=== PATIENT | female | born 1980 | race Caucasian/White ===

== ENCOUNTER 2019-03-26 11:08 | Emergency (ER) | payer OTHER ==
[~2019-03-26] VITALS: Ht 167.6 cm; Wt 83.0 kg
[~2019-03-26 11:08] MED LIST: LIPITOR10 MG PO; LISINOPRIL2.5 MG PO; PHENERGAN 25 MG25 M1 PO; PROMS25 WY RECTAL; SNAP INSULIN P1 EACH SUBQ; SYNTHROID75 MCG PO; VENTOLIN HFA 1818 GM INH; ZOFRAN ODT4 MG PO
[2019-03-26 11:10] VITALS: BP 150/79
[2019-03-26] MEDS ORDERED: WELLBUTRIN SR100 MG PO (11:14)
[2019-03-26] MEDS ORDERED: IBUPROFEN 800800 M1 PO (12:03)
[2019-03-26] MEDS ORDERED: AMOXICILLIN 50500 M1 PO (12:03)
[2019-03-26] MEDS ORDERED: TRAMADOL 50 MG50 MG PO (12:03)
== END 2019-03-26 12:13 | disposition home or self-care (01) ==
LOC: ER 11:08
DX: K02.9 Dental caries, unspecified (principal); E11.9 Type 2 diabetes mellitus without complications; Z88.1 Allergy status to other antibiotic agents; Z79.4 Long term (current) use of insulin

== ENCOUNTER 2019-04-24 13:52 | Inpatient (IN) | payer OTHER ==
[~2019-04-24] VITALS: Ht 162.6 cm; Wt 78.2 kg
[~2019-04-24 13:52] MED LIST changes: +AMOXICILLIN 50500 M1 PO; +IBUPROFEN 800800 M1 PO; +TRAMADOL 50 MG50 MG PO; +WELLBUTRIN SR100 MG PO
[2019-04-24 13:59] VITALS: BP 194/93
[2019-04-24 15:16] LABS: URINE BILIRUBIN NEGATIVE (Negative); URINE BLOOD 1+ (Negative); URINE CLARITY SL CLOUDY; URINE COLOR YELLOW; URINE GLUCOSE-RANDOM* 3+ (Negative); URINE KETONES TRACE (Negative); URINE LEUKOCYTES-REFLEX NEGATIVE (Negative); URINE NITRITE-REFLEX NEGATIVE (Negative); URINE PROTEIN (DIPSTICK) 3+ (Negative); URINE UROBILINOGEN 0.2 E.U./dl (0.2-1.0)
[2019-04-24 15:19] LABS: ABSOLUTE NEUTROPHILS 13.1 thou/uL (1.4-8.2); BASOPHILS 0.4 % (0.0-2.0); HEMATOCRIT 31.1 % (37.0-47.0); HEMOGLOBIN 10.5 gm/dL (12.0-15.0); LYMPHOCYTES 3.6 % (24.0-44.0); MCH 29.4 pg (26.0-34.0); MCHC 33.7 g/dL (28.0-37.0); MCV 87.3 fL (80.0-100.0); PLATELET COUNT 289 thou/uL (150-400); RBC 3.56 mil/uL (4.20-5.00); RDW 12.9 % (10.5-14.5); WBC 13.9 thou/uL (4.0-11.0)
[2019-04-24 15:31] LABS: CALCIUM 9.2 mg/dL (8.5-10.1); CREATININE 1.1 mg/dL (0.6-1.0); POTASSIUM 4.4 mmol/L (3.5-5.1)
[2019-04-24 15:45] LABS: CASTS None Seen /LPF (None Seen); SQUAMOUS 4-10 Moderate /LPF (0-3); URINE RBC 0-2 Rare /HPF (0-2); URINE WBC-REFLEX 0-5 Rare /HPF (0-5)
[2019-04-24 15:45] LABS: ALBUMIN 3.4 g/dL (3.4-5.0); DIRECT BILIRUBIN 0.1 mg/dL (<0.1-0.3); TOTAL BILIRUBIN 0.4 mg/dL (<0.1-1.0)
[2019-04-24 15:46] LABS: BACTERIA-REFLEX 1-9 Few /HPF (None Seen)
[2019-04-24 15:47] LABS: AMORPHOUS URATES Few /LPF (None Seen)
[2019-04-24 19:11] VITALS: BP 161/79
[2019-04-24 20:01] VITALS: BP 165/65
[2019-04-24 21:21] VITALS: BP 152/86
--- NOTE | 2019-04-25 01:44 | NUR ---
PT WAS ADMITTED TO THE UNIT FROM THE ER AT APPROX 1950 IN A STABLE CONDITION.ADMISSION HX,EDUCATION AND ASSESSMENT COMPLETED.PT HAD NAUSEA AND A TEMP OF 100.6 ON ADMIT.HOME SECURITY PROFESSIONAL ON DUTY NOTIFIED,ORDER NOTED AND CARRIED OUT.IVF INFUSING ORDERED.PT RESTING ON HER BED AT THIS TIME.CALL LIGHT WITHIN REACH.
[2019-04-25 04:01] LABS: HEMATOCRIT 28.9 % (37.0-47.0); HEMOGLOBIN 9.8 gm/dL (12.0-15.0); MCH 29.6 pg (26.0-34.0); MCV 87.1 fL (80.0-100.0); RBC 3.32 mil/uL (4.20-5.00); RDW 12.9 % (10.5-14.5); WBC 12.6 thou/uL (4.0-11.0)
[2019-04-25 04:16] LABS: CALCIUM 8.5 mg/dL (8.5-10.1); CREATININE 1.2 mg/dL (0.6-1.0); POTASSIUM 4.3 mmol/L (3.5-5.1)
[2019-04-25 07:12] VITALS: BP 153/81
[2019-04-25] MEDS ORDERED: ZOFRAN ODT4 MG DISSOLVE (09:27)
[2019-04-25 12:26] VITALS: BP 153/81
--- NOTE | 2019-04-25 13:55 | NUR ---
Assumed pt care at 7am.Pt in bed sleeping but arousable.Assessment completed. vss.No nausea or vomiting noted.Dr hernandez here,order noted.Pt tolerated lunch. Consult called to Dr Pompa and he rounded on pt.Insulin given via pt insulin pump x2 todaty.Dc summary compiled and reviewed with pt .Will dc pt later this after when her ride come.Will continue to monitor.
[2019-04-25 15:37] VITALS: BP 142/70
--- NOTE | 2019-04-26 07:50 | HC ---
[facility] [place] [address] CONSULTATION Name: KAELA JUAREZ Room #: 426-P [facility]..#: [id number] Admission: 04/24/19 ������������������ Attend Phys: Jc Jolly MD Discharge: 04/25/19 ������������������ Date of : 80 Report #: [id number] THIS REPORT FOR: //name// CC: Jc Jolly [facility] physician/PCP Erica PEPPER MD DATE OF SERVICE: 04/25/2019 ENDOCRINE CONSULTATION NOTE CONSULTING PHYSICIAN: Dr. Jc Jolly. PRIMARY CARE PHYSICIAN: Dr. Jenkins. CAREER SERVICES OFFICER: Dr. Pepper at [facility]. REASON FOR CONSULTATION: Uncontrolled type 1 diabetes mellitus. HISTORY OF PRESENT ILLNESS: This is a 38-year-old female patient whose medical background is significant for insulin-dependent diabetes mellitus. The patient was diagnosed with diabetes mellitus in 2006 and was treated briefly with oral antidiabetic agents, but quickly needed to progress to insulin therapy. Thereafter, the patient went on insulin pump therapy for some years, but then lost it due to insurance issues only to resume it again less than a year ago. She is currently on a [employer] Paradigm pump. Her basal rate settings are midnight 1 unit per hour, 5:00 a.m. 1.1 unit per hour, 4:00 p.m. 1.2 units per hour, 10:00 p.m. 1.1 units per hour. Her insulin sensitivity factor is 40, her carbohydrate to insulin ratio is 14:1. Her blood sugar target is 100-120. The patient notes that she takes Humalog insulin through her pump. It appears that her pump settings have been changed quite significantly only a few weeks ago and that since then, her blood glucose control had improved significantly at home to where she is running mostly between 120 and 200 mg/dL. She denies ongoing issues with hypoglycemia. The patient's background is negative for diabetic retinopathy and she notes that she gets annual eye exams, she does have mild nondisruptive peripheral neuropathy affecting both of her feet, she is not aware of issues pertaining to chronic kidney disease, she does not have coronary artery disease. Interestingly, 2 years ago, the patient had her right fifth toe amputated after a nonhealing ulcer, but she has never had issues with foot wound since then. In addition to this background, the patient is hypothyroid and was diagnosed only several months ago and is currently on levothyroxine therapy. The patient could not determine whether she was on 75 or 175 mcg daily [place] [address] CONSULTATION Name: KAELA JUAREZ Room #: 426-P [facility] ..#: [id number] Admission: 04/24/19 ������������������ Attend Phys: Jc Jolly MD Discharge: 04/25/19 ������������������ Date of : 80 Report #: [id number] believes that this dosage was put in place less than a month ago by Dr. ePpper based on recent thyroid function studies. She denies major issues with fatigue, tiredness, unexplained body weight changes, skin or hair changes. The patient is on chronic therapy with atorvastatin and lisinopril. Interestingly, the patient notes that she has acquired recent diagnosis of schizophrenia/bipolar disorder and was placed on multiple agents for these that she could not recall the names of. The patient presented here yesterday with complaints of intractable nausea, vomiting, abdominal discomfort that appeared all of a sudden. The patient noted that her blood glucose values were running in the 300 mg/dL when that happened and recalls having had similar episodes in the past, where uncontrolled severe hyperglycemia would eventually lead to intractable nausea and vomiting. She denies issues of fever or chills. By the time that I saw her, the patient was more comfortable and able to tolerate clears and soft diet well without issues. REVIEW OF SYSTEMS: CONSTITUTIONAL: Negative for fatigue, body weight changes, fever or chills. HEENT: Negative for sinus pain, ear drainage, ear pain. PULMONARY: Negative for shortness of breath, cough or hemoptysis. CARDIAC: Negative for palpitations, syncope or presyncope. GASTROINTESTINAL: Noted for intractable nausea and vomiting, now improving with a slight abdominal discomfort. NEUROLOGY: Baseline peripheral diabetic neuropathy; however, does not disrupt sleep or impair her gait. No seizures. No headaches, no loss of consciousness. PSYCHIATRY: She denies hallucinations, delusions, depression, but has significant sleep disturbances. As noted above, the patient believes she had been just handed a diagnosis of bipolar/schizophrenia. HEMATOLOGY: Negative for bleeding, bruising or other related abnormalities. SKIN: Negative for rash, discoloration or itching. Otherwise, review of system is noncontributory, unless mentioned in HPI. PAST MEDICAL HISTORY: 1. Insulin-dependent diabetes mellitus, likely type 1 diabetes mellitus. 2. Hypothyroidism. 3. Hypertension. 4. Hyperlipidemia. 5. Peripheral vascular disease, status post amputation of the fifth right toe. 6. Questionable recent diagnosis of bipolar disorder and schizophrenia. 7. Acute renal insufficiency with a GFR of 50. The patient does not recall having had any issue with that in the past. CURRENT MEDICATIONS: Humalog insulin as per her insulin pump settings; levothyroxine, unknown dose 75 or 175 mcg daily; lisinopril 2.5 mg daily; atorvastatin 10 mg daily. The patient also says that she is on 3 psych meds that she cannot recall at this point in time. [facility] [address] [place] [address] CONSULTATION Name: KAELA JUAREZ Room #: 426-P [facility] IN ..#: [id number] Admission: 04/24/19 ������������������ Attend Phys: Jc Jolly MD Discharge: 04/25/19 ������������������ Date of : 80 Report #: [id number] ALLERGIES: CLINDAMYCIN. FAMILY HISTORY: Noncontributory. SOCIAL HISTORY: Has three children. Currently unemployed. Denies use of tobacco or alcohol. Recently moved from [place]. PHYSICAL EXAMINATION: GENERAL: Pleasant young female patient who is not in apparent pain or distress. VITAL SIGNS: Blood pressure is 153/81 mmHg, heart rate is 102 beats per minute, respirations 12 per minute, temperature 37.2 degrees. HEENT: Anicteric sclerae. Intact extraocular motions. NECK: Supple, without JVD, carotid bruits, or lymphadenopathy. I do not appreciate thyromegaly. CHEST: Clear to auscultation. LUNGS: Reveal good air entry bilaterally. No rales, wheezes or crackles. HEART: Regular rate and rhythm without murmurs or gallops. ABDOMEN: Soft and lax without tenderness or organomegaly. There is a bit of generalized discomfort on deep palpation, but no guarding, no organomegaly. She has active bowel sounds. LOWER EXTREMITIES: No edema. No skin changes, deformities. Pedal pulses are appreciated. Sensation to light touch is only slightly diminished. She is status post a well-healed fifth right toe amputation. NEUROLOGIC: Awake, alert and oriented to time, place and person. The remainder of her examination is nonfocal other than for the slight sensory deficit noted over both feet. PSYCHOLOGY: Pleasant, interactive, appropriate, oriented to time, place and person. No delusions. SKIN: No rash, ulceration or discoloration. No other changes. LABORATORY DATA: Blood glucose on arrival was 310 that went down to 274 mg/dL since then. Sodium 140, potassium 4.3, chloride 106, CO2 of 24, anion gap 10, BUN 26, creatinine 1.2, glucose on arrival 351. AST 22, lipase 34, total bilirubin 0.4, calcium 8.5, alkaline phosphatase 74, ALT 34, total protein 7.0, GFR 50, white blood count 12.6, hemoglobin 9.8, hematocrit 28.9, platelets 284. ASSESSMENT AND PLAN: 1. Type 1 diabetes mellitus, uncontrolled: The patient has been historically uncontrolled, but seems to have done better as she resumed insulin pump therapy. She notes that her hemoglobin A1c was higher than 11, but then was shown to be just above 9 only a month ago when she visited with Dr. Pepper. She also indicates that since her most recent insulin pump setting adjustment a few weeks ago that her blood glucose control has improved significantly and had remained in target range for most of the time [place] [address] CONSULTATION Name: KAELA JUAREZ Room #: 426-P [facility] .R.#: [id number] Admission: 04/24/19 ������������������ Attend Phys: Jc Jolly MD Discharge: 04/25/19 ������������������ Date of : 80 Report #: [id number] Of course, she presents now with severe hyperglycemia initially that has improved gradually. She believes from previous experience that hyperglycemia was probably the inciting event of nausea and vomiting. I discussed possible causes of sudden, and severe elevation of blood glucose values for a pump patient including infusion set problems like kinking or dislodged needle or even an insulin patch. The patient was advised to trouble shoot her pump and/or infusion sets anytime such a severe sudden unexplained hyperglycemia is observed. Other than that and judging by the improvement that she has had over the past few weeks, I do not see an immediate need to adjust her insulin settings and would rather for her to continue her followup and monitoring by Dr. Pepper, which she understood and agreed with. Also, when I discussed the utilization of temporary basal features of the pump, the patient replied that she is not familiar with that feature. I advised the patient to pursue a pump training refresher course, which can be provided through the [employer] [facility]. In the immediate setting and as the patient improves her volume status and is showing better ability to maintain p.o. intake, I will leave her insulin settings unchanged. Maintain blood glucose monitoring a.c. and at bedtime. 2. Hypothyroidism: This is a relatively new diagnosis and the patient seems to have undergone a dose adjustment less than a month ago. More so, the patient is unable to determine whether she is on 75 or 175 mcg of levothyroxine, which is quite a big difference. In any event, since the dose adjustment has not been quite a month yet, this would not be an ideal time to assess the adequacy of the current dosage. I advised her to maintain her follow up with Dr. Pepper and pursue a follow up on her recent dose adjustment within the next month or so, but to maintain her dose unchanged for the time being. 3. Hyperlipidemia: The patient is currently on atorvastatin therapy and tolerates it well. I stressed the importance of adequate lipid control going forward and urged her to maintain her current therapy and follow up with Dr. Pepper for this issue. 4. Hypertension: The patient's level of blood pressure control is inadequate here, but she maintains that it usually does better than this. I will continue with current antihypertensive regimen. 5. Renal insufficiency: The patient has no knowledge of issues pertaining to chronic kidney disease. Her GFR is 50, but I do not have a baseline to compare to, and I wonder if this is prerenal azotemia in the setting of intractable nausea, vomiting and dehydration. This would be definitely worth monitoring in the future as she stabilizes. 6. Schizophrenia/bipolar disorder. The patient says that this is a fairly new [facility] [address] [place] [address] CONSULTATION Name: KAELA JUAREZ Room #: 426-P [facility] ..#: [id number] Admission: 04/24/19 ������������������ Attend Phys: Jc Jolly MD Discharge: 04/25/19 ������������������ Date of : 80 Report #: [id number] diagnosis that is less than a week old without any distant history of psychiatric illnesses. I asked her to maintain her follow up with a diagnosing physician Dr. Chapin and a consult with him on any medicinal adjustments going forward. I certainly appreciate the opportunity to participate in the care of Dr. Jolly's patient. ��������������������������������������������� <ELECTRONICALLY SIGNED> ���������������������������������������� By: Yael Pompa MD ��������������������������������������������� 04/26/19 0750 1421 [id number] Yael Pompa MD /nt
== END 2019-04-25 15:54 | disposition home or self-care (01) | DRG 392 ==
LOC: ER 13:52 → EROBS 18:19 → 4E 19:44
PROVIDERS: Emergency Medicine; ADMIT Hospitalist
DX: K52.9 Noninfective gastroenteritis and colitis, unspecified (principal); E03.9 Hypothyroidism, unspecified; E78.5 Hyperlipidemia, unspecified; E10.51 Type 1 diabetes mellitus with diabetic peripheral angiopathy without gangrene; E10.65 Type 1 diabetes mellitus with hyperglycemia; F20.9 Schizophrenia, unspecified; F31.9 Bipolar disorder, unspecified; N28.9 Disorder of kidney and ureter, unspecified; Z88.1 Allergy status to other antibiotic agents; Z87.891 Personal history of nicotine dependence; Z79.899 Other long term (current) drug therapy; Z79.4 Long term (current) use of insulin
CPT/HCPCS: 10183

== ENCOUNTER 2020-04-27 01:57 | Emergency (ER) | payer OTHER ==
[~2020-04-27] VITALS: Ht 167.6 cm; Wt 80.3 kg
[~2020-04-27 01:57] MED LIST changes: +ZOFRAN ODT4 MG DISSOLVE
[2020-04-27 02:54] LABS: ABSOLUTE NEUTROPHILS 10.3 thou/uL (1.4-8.2); BASOPHILS 0.5 % (0.0-2.0); EOSINOPHILS 0.8 % (0.0-3.0); HEMATOCRIT 33.6 % (37.0-47.0); LYMPHOCYTES 8.7 % (24.0-44.0); MCH 28.5 pg (26.0-34.0); MCHC 32.7 g/dL (28.0-37.0); MCV 87.1 fL (80.0-100.0); MONOCYTES 2.8 % (1.0-8.0); PLATELET COUNT 247 thou/uL (150-400); POLYS 87.2 % (36.0-66.0); RBC 3.86 mil/uL (4.20-5.00); RDW 12.8 % (10.5-14.5); WBC 11.8 thou/uL (4.0-11.0)
[2020-04-27 03:07] LABS: URINE BILIRUBIN NEGATIVE (Negative); URINE BLOOD TRACE (Negative); URINE CLARITY CLEAR; URINE COLOR YELLOW; URINE GLUCOSE-RANDOM* NEGATIVE (Negative); URINE KETONES NEGATIVE (Negative); URINE LEUKOCYTES-REFLEX NEGATIVE (Negative); URINE NITRITE-REFLEX NEGATIVE (Negative); URINE PROTEIN (DIPSTICK) 3+ (Negative); URINE SPECIFIC GRAVITY 1.025 (1.005-1.035); URINE UROBILINOGEN 0.2 E.U./dl (0.2-1.0)
[2020-04-27 03:07] LABS: CALCIUM 8.7 mg/dL (8.5-10.1); CREATININE 1.1 mg/dL (0.6-1.0); POTASSIUM 4.7 mmol/L (3.5-5.1)
[2020-04-27 03:12] LABS: ALBUMIN 3.5 g/dL (3.4-5.0); TOTAL BILIRUBIN 0.3 mg/dL (0.2-1.0); TOTAL PROTEIN 7.2 g/dL (6.4-8.2)
[2020-04-27 03:44] LABS: BACTERIA-REFLEX 1-9 Few /HPF (None Seen); CASTS None Seen /LPF (None Seen); CRYSTALS None Seen /LPF (None Seen); MUCUS 0-3 Light strn/LPF (None Seen); SQUAMOUS 4-10 Moderate /LPF (0-3); URINE RBC 0-2 Rare /HPF (0-2); URINE WBC-REFLEX 0-5 Rare /HPF (0-5)
[2020-04-27 04:02] LABS: BE(vivo) -3.1 mmol/L (-2 to +3); HCO3 21.7 mmol/L (22.0-26.0); PCO2 VENOUS 38.2 mmHg (41.0-51.0)
[2020-04-27] MEDS ORDERED: PHENERGAN 25 MG25 M1 PO (04:36)
[2020-04-27 05:27] VITALS: BP 156/83
--- NOTE | 2020-04-27 07:12 | EKG ---
[facility] [place] [place] [address] ELECTROCARDIOGRAM REPORT Name: LARRYKAELA Room #: [facility]#: [id number] Admission: 04/27/20 Attend Phys: Discharge: 04/27/20 Date of : 80 Report #: [id number] THIS REPORT FOR: cc: NO FAMILY PHYSICIAN or PCP NO FAMILY PHYSICIAN or PCP Inocente Hopper MD [facility] ~ THIS REPORT FOR: //name// [facility] ED Test Date: 2020-04-27 Test Time: 02:34:07 Pat Name: KAELA JUAREZ Department: Room: Gender: F Sugar Controller: VERDIN : 1980 Requested By: Obdulio Johnson Order Number: [id number] MD: Inocente Hopper Measurements Intervals [place] Rate: 81 P: 51 CO: 162 QRS: 29 QRSD: 95 T: 62 QT: 369 QTc: 429 Interpretive Statements Sinus rhythm RSR' in V1 or V2, right VCD or RVH Compared to ECG 06/29/2017 21:45:58 Right ventricular hypertrophy now present Sinus tachycardia no longer present Electronically Signed On 04-27-2020 7:12:12 CDT by Inocente Hopper [email or web address] <ELECTRONICALLY SIGNED> By: Inocente Hopper MD, FACC 04/27/20 0712 0234 [id number] Inocente Hopper MD, [facility] /EPI
== END 2020-04-27 05:29 | disposition home or self-care (01) ==
LOC: ER 01:57
PROVIDERS: Emergency Medicine
DX: R11.2 Nausea with vomiting, unspecified (principal); E11.9 Type 2 diabetes mellitus without complications; Z79.899 Other long term (current) drug therapy; Z79.4 Long term (current) use of insulin; Z88.1 Allergy status to other antibiotic agents; Z87.891 Personal history of nicotine dependence